=== PATIENT | male | born 1970 | race Caucasian/White ===

== ENCOUNTER 2017-02-17 09:56 | Emergency (ER) | payer OTHER ==
[2017-02-17 09:56] VITALS: BP_DIAS 0
[2017-02-17] MEDS ORDERED: EPINEPHrine HCL 1 MG/10 ML SYRG IV ONE (09:57)
[2017-02-17] MEDS ORDERED: AMIODARONE HCL (50 MG/ ML) 3 ML VIAL IV ONE (09:57)
[2017-02-17] MEDS ORDERED: SODIUM BICARBONATE 8.4 % INJ 50ML VIAL IV ONE (09:57)
[2017-02-17 10:01] VITALS: BP_SYST 0
== END 2017-02-17 10:22 | disposition expired ==
LOC: ER 09:56
DX: I46.9 Cardiac arrest, cause unspecified (principal); I10 Essential (primary) hypertension
CPT/HCPCS: 92950; 99291; J0171; J0282